=== PATIENT | female | born 1990 | race Caucasian/White ===

== ENCOUNTER → 2020-03-17 | Outpatient (CLI) | payer OTHER ==
--- NOTE | 2020-04-04 09:11 | REP ---
OBSTETRIC ULTRASOUND FOR ANATOMY Delay in reporting results from hospital computer malfunction as a result of [employer]. FINDINGS: There is a single intrauterine gestation. position is not recorded by the technologist, however, upon review of the images, the fetus appears to be in a cephalic presentation. The placenta is anterior, grade 1, without previa and without abruptio. heart rate is 149 beats per minute. Amniotic fluid volume subjectively is normal. Cervix measures 3.2 cm in length. Composite gestational age by the study today is 21 weeks 0 days, estimated date of delivery (EDC) 07/28/2020. Estimated weight is 405 grams. This is the 70th percentile. The following anatomic structures are identified and are unremarkable: Cisterna magna, cavum septum pellucidum, thalami, spine, stomach, kidneys, four chamber heart, cardiac right and left ventricular outflow tracts, three-vessel cord, cord insertion including the placental and insertions, upper and lower extremities, and face and upper lip. No anomalies are identified. MTDD
== END ==
LOC: M WHC 07:16
PROVIDERS: ATTEND Specialist
DX: Z34.02 Encounter for supervision of normal first pregnancy, second trimester (principal); Z36.89 Encounter for other specified antenatal screening; Z3A.21 21 weeks gestation of pregnancy

== ENCOUNTER → 2020-05-09 | Outpatient (CLI) | payer OTHER ==
[2020-05-09 13:45] LABS: BASO % 0.3 % (0.0-1.0); EOS # 0.2 10^3/uL (0.0-0.5); EOS % 2.2 % (0.0-3.0); HEMATOCRIT 34.5 % (36.0-47.0); HEMOGLOBIN 10.9 g/dl (12.0-15.5); MEAN CORPUSCULAR HEMOGLOBIN 28.9 pg (27.0-33.0); MEAN CORPUSCULAR HGB CONC 31.6 g/dl (32.0-36.5); MEAN CORPUSCULAR VOLUME 91.5 fl (80.0-96.0); MONO # 0.4 10^3/uL (0.0-0.8); MONO % 5.6 % (0.0-5.0); NEUTROPHILS % 78.1 % (36.0-66.0); PLATELET COUNT, AUTOMATED 183 10^3/uL (150-450); RED BLOOD COUNT 3.77 10^6/uL (4.00-5.40); WHITE BLOOD COUNT 7.7 10^3/uL (4.0-10.0)
== END ==
LOC: M PLALAB 08:57
PROVIDERS: ATTEND Specialist
DX: Z34.82 Encounter for supervision of other normal pregnancy, second trimester (principal); Z36.89 Encounter for other specified antenatal screening

== ENCOUNTER → 2020-06-20 | Outpatient (CLI) | payer OTHER ==
--- NOTE | 2020-06-20 16:33 | REP ---
INDICATION: O26.849 UTERINE SIZE DATE DISCREPANCY,GROWTH. COMPARISON: March 17, 2020.. TECHNIQUE: Transabdominal obstetric sonography. FINDINGS: Scanning through the gravid uterus demonstrates a viable single intrauterine gestation in cephalic lie. motion is observed and heart rate is recorded at 165 beats per minute. A anterior placenta is seen, grade 3, without evidence of placenta previa. Amniotic fluid is subjectively normal. Closed cervical length is measured at 4.0 cm transabdominally. No extrauterine abnormality is observed. anatomic survey is not performed.. Biometry chart: BPD 8.7 cm, 35 weeks 1 day Head circumference 33.2 cm, 37 weeks 6 days Abdominal circumference 34.2 cm, 38 weeks 1 day Femur length 6.4 cm 33 weeks 1 day Humeral length 5.5 cm, 32 weeks 0 days HC AC ratio normal 0.97 Cephalic index normal 0.72 Estimated weight 2974 g, 6 lb 8 oz, greater than 90th percentile for 34 weeks 1 day SALUD normal 11.4 cm IMPRESSION: Viable single intrauterine gestation at 35 weeks 2 days by today's composite sonographic criteria. MONISHA by today's sonography July 23, 2020. No complication identified. Estimated weight greater than 90th percentile for 34 weeks 1 day. <Electronically signed by Venu Su > 06/20/20 [id number]
== END ==
LOC: M WHC 13:00
PROVIDERS: ATTEND Advanced Practice Midwife
DX: O26.843 Uterine size-date discrepancy, third trimester (principal); Z3A.35 35 weeks gestation of pregnancy

== ENCOUNTER → 2020-06-27 | Outpatient (REF) | payer OTHER | LOC: M SFHCWAGY 13:10 | PROVIDERS: ATTEND Advanced Practice Midwife | DX: Z34.83 Encounter for supervision of other normal pregnancy, third trimester (principal); Z3A.00 Weeks of gestation of pregnancy not specified ==

== ENCOUNTER → 2020-07-10 | Outpatient (CLI) | payer OTHER ==
[~2020-07-10] MED LIST: MAPA500T2 PO; PRENTAB9 PO; TUMSCHW16 PO
--- NOTE | 2020-07-11 07:20 | REP ---
INDICATION: UTERINE SIZE-DATE DISCREPANCY,GROWTH COMPARISON: 06/20/2020 TECHNIQUE: Transabdominal obstetrical ultrasound with color Doppler evaluation. FINDINGS: Examination demonstrates a single live intrauterine in cephalic presentation. motion is identified by technologist. Placenta is noted anterior and grade 3 without evidence for placenta previa or abruption. Amniotic fluid volume is normal. Cervix measures 3.3 cm in length and appears closed.. Gestational age by LMP 37 weeks 1 day with MONISHA 07/30/2020. Gestational age by current measurements 37 weeks 1 day with MONISHA 07/30/2020. FHR equals 161 beats per minute. BPD: 9.5 cm 38 weeks 4 days HC: 33.0 cm 37 weeks 4 days AC: 33.4 cm 37 weeks 2 days FL: 7.1 cm 36 weeks 2 days HL: 6.2 cm 36 weeks 0 days HC/AC: 0.99 Estimated weight 3155 grams (61stpercentile). Amniotic fluid index: 14.4 cm (7.5-24.4) IMPRESSION: Single live advanced gestation in cephalic presentation demonstrating appropriate estimated weight and growth. <Electronically signed by Jarrod Tinsley > 07/11/20 0716
== END ==
LOC: M WHC 13:18
PROVIDERS: ATTEND Obstetrics & Gynecology
DX: O26.843 Uterine size-date discrepancy, third trimester (principal); O13.3 Gestational [pregnancy-induced] hypertension without significant proteinuria, third trimester

== ENCOUNTER → 2020-07-10 | Outpatient (REF) | payer OTHER ==
[~2020-07-10] MED LIST changes: +IBUP80TA PO; +NIFE1TAB52 PO
[2020-07-10 17:58] LABS: HEMATOCRIT 38.4 % (36.0-47.0); HEMOGLOBIN 11.8 g/dl (12.0-15.5); MEAN CORPUSCULAR HGB CONC 30.7 g/dl (32.0-36.5); PLATELET COUNT, AUTOMATED 162 10^3/uL (150-450); RED BLOOD COUNT 4.22 10^6/uL (4.00-5.40); WHITE BLOOD COUNT 8.9 10^3/uL (4.0-10.0)
[2020-07-10 20:11] LABS: ALT/SGPT 12 U/L (12-78); BILIRUBIN,TOTAL 0.3 MG/DL (0.2-1.0); CREATININE FOR GFR 0.45 MG/DL (0.55-1.30); GLOMERULAR FILTRATION RATE > 60.0 (>60); LDH LACTATE DEHYDROGENASE 185 U/L (84-246); URIC ACID 3.4 MG/DL (2.6-6.0)
[2020-07-10 20:16] LABS: TOTAL PROTEIN,RANDOM URINE 16.7 MG/DL (0.0-12.0)
== END ==
LOC: M PLALAB 15:42
PROVIDERS: ATTEND Advanced Practice Midwife
DX: O13.3 Gestational [pregnancy-induced] hypertension without significant proteinuria, third trimester (principal)
CPT/HCPCS: 36415; 76815; 82247; 82565; 82570; 83615; 84156; 84450; 84460; 84550; 85027; G0463

== ENCOUNTER 2020-07-12 07:11 | Inpatient (IN) | payer OTHER ==
[2020-07-12] VITALS (14 sets, daily range): BP systolic 131–147; BP diastolic 66–96
[~2020-07-12] VITALS: Ht 157.5 cm; Wt 91.2 kg
[2020-07-12] MEDS ORDERED: TUMSCHW16 PO (07:39)
[2020-07-12] MEDS ORDERED: MAPA500T2 PO (07:39)
[2020-07-12] MEDS ORDERED: PRENTAB9 PO ×2 (07:39)
[2020-07-12 09:10] LABS: HEMOGLOBIN 11.2 g/dl (12.0-15.5); MEAN CORPUSCULAR HEMOGLOBIN 28.2 pg (27.0-33.0); MEAN CORPUSCULAR VOLUME 88.2 fl (80.0-96.0); PLATELET COUNT, AUTOMATED 142 10^3/uL (150-450); RED BLOOD COUNT 3.97 10^6/uL (4.00-5.40); WHITE BLOOD COUNT 6.7 10^3/uL (4.0-10.0)
[2020-07-12 09:12] LABS: ALT/SGPT 12 U/L (12-78); BILIRUBIN,TOTAL 0.2 MG/DL (0.2-1.0); CREATININE FOR GFR 0.54 MG/DL (0.55-1.30); GLOMERULAR FILTRATION RATE > 60.0 (>60); LDH LACTATE DEHYDROGENASE 228 U/L (84-246); URIC ACID 4.1 MG/DL (2.6-6.0)
[2020-07-12] MEDS ORDERED: PENICILLIN G POTASSIUM IV 5 MU in D5W MINI-BAG PLUS 100 ML IV STA (09:32)
--- NOTE | 2020-07-12 09:39 | HPEPDOC ---
Obstetrical History & Physical General Date of Admission Jul 12, 2020 at 07:11 History of Present Illness 30-year-old at 37+2 weeks gestation. EDC 07/31/2020; dating by LMP consistent with first trimester ultrasound. Presents for an induction of labor. Indication for induction: Gestational hypertension/preeclampsia without severe features She denies vaginal bleeding, loss of fluid or painful, frequent uterine contractions. She reports regular movement. She denies headache, visual changes, right upper quadrant pain, shortness of breath or chest pain. course:. 1. Gestational hypertension versus preeclampsia without severe features 2. History of migraines with aura PMH:. Migraines SH:. LEEP (2013) Meds: vitamin, Claritin, iron, Pepcid, Esgic All: Lortab (nausea, vomiting) FINANCIAL SERVICES AGENT: No STI or dysplasia OB: 01/2014, 38+4 week , 7 lbs. 8 oz., uncomplicated Sochx: No tobacco, alcohol or drug use FamHx: Father emphysema, mother hypertension labs: Blood type B+, antibody screen negative, HepBsAg neg, HIV neg, rubella immune, Hep C antibody negative, RPR nonreactive, CT/GC neg, urine culture negative, 1 hour glucose challenge test 126, GBS positive Imaging: Second trimester ultrasound revealed no anomalies or placental abnormalities Past Medical History Allergies Coded Allergies: No Known Allergies (Unverified , 07/12/20) Medications Scheduled No.137/Iron/Folic Acd ( Vitamin Tablet) 1 Each Tablet, 1 TAB PO DAILY Scheduled PRN Acetaminophen (Mapap) 500 Mg Tablet, 1,000 MG PO Q6HP PRN for PAIN OR FEVER Calcium Carbonate (Tums Smoothies) 300 Mg Tab.chew, 750 MG PO Q4H PRN for INDIGESTION Physical Examination Physical Examination GENERAL: Alert and oriented times three. BREAST: . ABDOMEN: Gravid and non-tender to touch. FETUS: Is vertex (VTX) by sterile vaginal examination (SVE), fetus is vertex (VTX) by Wilber. HEART RATE: Regular rate and rhythm. LUNGS: Clear to auscultation (CTA). EXTREMITIES: No edema. No clonus. Deep tendon reflexes (DTRs) + 2. SVE: 1 cm, 50%, -3, cephalic, intact EFM: Category 1 [place]: Irregular contractions, patient reports being comfortable Vital Signs/I&O Vital Signs Date Time Temp Pulse Resp B/P (MAP) Pulse Ox O2 Delivery O2 Flow Rate FiO2 07/12/20 07:33 98.5 118 16 137/86 (103) Laboratory Data 24H LABS Vital Signs Date Time Temp Pulse Resp B/P (MAP) Pulse Ox O2 Delivery O2 Flow Rate FiO2 07/12/20 16:33 98.3 88 18 147/96 (113) 07/12/20 15:35 85 131/74 (93) 07/12/20 13:31 90 145/83 (103) 07/12/20 12:03 98.6 88 16 131/66 (87) 07/12/20 09:44 88 131/77 (95) 07/12/20 08:48 101 131/68 (89) 07/12/20 08:34 100 133/69 (90) 07/12/20 08:18 107 131/76 (94) 07/12/20 08:03 106 135/79 (97) 07/12/20 07:52 100 141/81 (101) 07/12/20 07:33 98.5 118 16 137/86 (103) Laboratory Tests 07/12/20 08:22: Urine Random Total Protein 48.8H 07/12/20 08:30: Creatinine 0.54L, Glomerular Filtration Rate > 60.0, Uric Acid 4.1, Total Bilirubin 0.2, Aspartate Amino Transf (AST/SGOT) 12, Alanine Aminotransferase (ALT/SGPT) 12, Lactate Dehydrogenase 228, Syphilis Serology [Pending] 07/12/20 08:37: White Blood Count 6.7, Red Blood Count 3.97L, Hemoglobin 11.2L, Hematocrit 35.0L, Mean Corpuscular Volume 88.2, Mean Corpuscular Hemoglobin 28.2, Mean Corpuscular Hemoglobin Concent 32.0, Red Cell Distribution Width 15.9H, Platelet Count 142L, Nucleated Red Blood Cells % (auto) 0.0, Urine Random Creatinine 107.0 07/12/20 09:25: Serology Scanned Report Hepatitis B Testing Current Medications Medications (Trade) Dose Ordered Sig/Kamilla Route PRN Reason Start Time Stop Time Status Last Admin Dose Admin Misoprostol (Cytotec) 50 mcg Q4H SL 07/12/20 10:00 07/12/20 14:24 50 MCG Penicillin G Potassium 2.5 mu/ IV Miscellaneous Supplies 25 ml @ 25 mls/hr Q4H IV 07/12/20 14:00 07/12/20 14:07 25 MLS/HR Laboratory Tests 2 07/12/20 08:22: Urine Random Total Protein 48.8H 07/12/20 08:30: Glomerular Filtration Rate > 60.0, Uric Acid 4.1, Total Bilirubin 0.2, Aspartate Amino Transf (AST/SGOT) 12, Alanine Aminotransferase (ALT/SGPT) 12, Lactate Dehydrogenase 228 07/12/20 08:37: Nucleated Red Blood Cells % (auto) 0.0, Urine Random Creatinine 107.0 CBC/BMP Vital Signs Date Time Temp Pulse Resp B/P (MAP) Pulse Ox O2 Delivery O2 Flow Rate FiO2 07/12/20 16:33 98.3 88 18 147/96 (113) 07/12/20 15:35 85 131/74 (93) 07/12/20 13:31 90 145/83 (103) 07/12/20 12:03 98.6 88 16 131/66 (87) 07/12/20 09:44 88 131/77 (95) 07/12/20 08:48 101 131/68 (89) 07/12/20 08:34 100 133/69 (90) 07/12/20 08:18 107 131/76 (94) 07/12/20 08:03 106 135/79 (97) 07/12/20 07:52 100 141/81 (101) 07/12/20 07:33 98.5 118 16 137/86 (103) Laboratory Tests 07/12/20 08:22: Urine Random Total Protein 48.8H 07/12/20 08:30: Creatinine 0.54L, Glomerular Filtration Rate > 60.0, Uric Acid 4.1, Total Bilirubin 0.2, Aspartate Amino Transf (AST/SGOT) 12, Alanine Aminotransferase (ALT/SGPT) 12, Lactate Dehydrogenase 228, Syphilis Serology [Pending] 07/12/20 08:37: White Blood Count 6.7, Red Blood Count 3.97L, Hemoglobin 11.2L, Hematocrit 35.0L, Mean Corpuscular Volume 88.2, Mean Corpuscular Hemoglobin 28.2, Mean Corpuscular Hemoglobin Concent 32.0, Red Cell Distribution Width 15.9H, Platelet Count 142L, Nucleated Red Blood Cells % (auto) 0.0, Urine Random Creatinine 107.0 07/12/20 09:25: Serology Scanned Report Hepatitis B Testing Current Medications Medications (Trade) Dose Ordered Sig/Kamilla Route PRN Reason Start Time Stop Time Status Last Admin Dose Admin Misoprostol (Cytotec) 50 mcg Q4H SL 07/12/20 10:00 07/12/20 14:24 50 MCG Penicillin G Potassium 2.5 mu/ IV Miscellaneous Supplies 25 ml @ 25 mls/hr Q4H IV 07/12/20 14:00 07/12/20 14:07 25 MLS/HR Laboratory Tests 07/12/20 08:30 Laboratory Tests 07/12/20 08:30 07/12/20 08:37 07/12/20 08:37 Assessment/Plan Assessment 30-year old at 37+2 weeks gestation. Dx:. Preeclampsia without severe features. Reassuring maternal and status. Plan Admit and orient. Routine labs/orders Group B Streptococcus (GBS) positive.. GBS prophylaxis with penicillin Start with cervical ripening via misoprostol 50mcg SL every 4-6 hours until cervix is favorable. Counseled on Pitocin and induction of labor (IOL). Mode of delivery plan: ; as indicated. KIKE PRITCHETT DO Jul 12, 2020 09:39
[2020-07-12] MEDS: miSOPROStol 50 MCG 1/2 TAB (S0191) SL SCH ×3 (10:03→22:06)
[2020-07-12] MEDS: PENICILLIN G POTASSIUM IV 2.5 MU in IV 1 EA IV SCH ×3 (14:07→22:07)
[2020-07-13] VITALS (38 sets, daily range): BP systolic 105–186; BP diastolic 56–123
[2020-07-13] MEDS: PENICILLIN G POTASSIUM IV 2.5 MU in IV 1 EA IV SCH ×3 (02:30→10:15)
--- NOTE | 2020-07-13 03:12 | IPNPDOC ---
Obstetrical Progress Note Date of Service Jul 13, 2020 Subjective Patient starting to feel uncomfortable with contractions. No loss of fluid or vaginal bleeding. No headache, visual changes, right upper quadrant pain, shortness of breath or chest pain. No subjective fever, chills, myalgias. Objective Vital Signs Date Time Temp Pulse Resp B/P (MAP) Pulse Ox O2 Delivery O2 Flow Rate FiO2 07/13/20 02:50 71 18 136/93 (107) 07/13/20 01:47 98.0 Mild Hypertension Normal heart rate. Afebrile SVE: 3 cm, 75%, -3 station, cephalic, intact, no bloody show EFM: Category 1 heart rate tracing [place]: contractions every 2-5 minutes Assessment and Plan Additional Comments A/P: Latent labor normal progression approaching active phase of labor. Favorable cervix. Reassuring maternal and status. -Start Pitocin, low-dose protocol DO SAL Ortiz JONATHAN R. DO Jul 13, 2020 03:11
[2020-07-13] MEDS ORDERED: OXYTOCIN DRIP 30 UNITS in IV 1 EA IV SCH ×2 (03:15→12:28)
[2020-07-13] MEDS ORDERED: FENTANYL 2MCG/ML ROPIVACAINE 0.2% IN 0.9% NACL 100ML IVBAG As Ordered ONE (03:27)
[2020-07-13] MEDS ORDERED: ONDANSETRON 4MG/2ML VIAL IV PRN ×2 (04:45→12:30)
[2020-07-13] MEDS ORDERED: NALOXONE INJ 0.4MG/1ML VIAL (J2310 PER 1MG) IV PRN (04:45)
[2020-07-13] MEDS ORDERED: REFRIGERATOR IV KEYS XX PRN (04:45)
[2020-07-13] MEDS ORDERED: EPIDURAL COMMENT XX SCH (04:45)
[2020-07-13] MEDS ORDERED: LACTATED RINGER'S 1000 ML IV PRN (04:45)
[2020-07-13] MEDS ORDERED: EPIDURAL/PCA KEYS XX PRN (04:45)
[2020-07-13] MEDS ORDERED: ePHEDrine SULFATE 25 MG/5 ML(5MG/ML) SYRINGE IV PRN (04:45)
[2020-07-13] MEDS ORDERED: diphenhydrAMINE 50MG/ML VIAL (J1200) IV PRN (04:45)
[2020-07-13] MEDS: FENTANYL/ROPIVACAINE/NACL BAG 100 ML EPIDURAL SCH ×2 (04:46→11:17)
[2020-07-13] MEDS ORDERED: CALCIUM CARBONATE 500 MG CHEW U/D PO SCH (09:00)
--- NOTE | 2020-07-13 09:52 | IPNPDOC ---
Obstetrical Progress Note Date of Service Jul 13, 2020 Subjective Patient is comfortable with epidural. Denies VB/LOF. No ALY, visual changes, RUQ pain, sob, cp. Objective Vital Signs Date Time Temp Pulse Resp B/P (MAP) Pulse Ox O2 Delivery O2 Flow Rate FiO2 07/13/20 07:52 78 16 109/56 (73) 07/13/20 06:21 99.0 Assessment Heart Rate Tracing: Category I Tocometer Contractions: Yes Frequency: every 2-5 min. Sterile Vaginal Examination Dilation: 4 cm Effacement (%): 70% Station: -2 Cervical Consistency: Soft Cervical Position: Anterior (AROM, clear fluid) Postion/Presentation: Cephalic presentation Assessment and Plan Status: Reassuring Additional Comments Reassuring maternal and status Continue KIKE Neal DO Jul 13, 2020 09:52
[2020-07-13] MEDS: LR 1,000 ML IV SCH ×6 (10:15→18:52)
[2020-07-13] MEDS ORDERED: DOCUSATE SODIUM 100MG CAPSULE PO PRN (12:30)
[2020-07-13] MEDS ORDERED: RHOGAM 300 MCG (1500 IU) INJ (J2790) IM SCH (12:30)
[2020-07-13] MEDS ORDERED: PROMETHAZINE 25 MG TAB PO PRN (12:30)
[2020-07-13] MEDS ORDERED: BENZOCAINE 20% HEMORRHOIDAL OINTMENT 28GM TUBE TOP PRN (12:30)
[2020-07-13] MEDS ORDERED: IBUPROFEN 800 MG TAB PO PRN (12:30)
[2020-07-13] MEDS ORDERED: ACETAMINOPHEN 500 MG TAB PO PRN (12:30)
[2020-07-13] MEDS ORDERED: ACETAMINOPHEN TAB 650MG DOSE (2X325MG) PO PRN (12:30)
[2020-07-13] MEDS ORDERED: MEASLES,MUMPS,RUBELLA VACCINE INJ (MMR-II) (90707) SC SCH (12:30)
--- NOTE | 2020-07-13 12:36 | DNPDOC ---
[facility] Delivery Note Delivery Note DATE OF DELIVERY: 07/13/2020 TIME OF DELIVERY: 1208 Spontaneous vaginal delivery. WRIST CLOSER: Dr. Regino Gómez DO FACOG ANESTHESIA: Epidural. LACERATION: Second-degree ESTIMATED BLOOD LOSS: 200 mL. FINDINGS: 8 pound 6 ounce (3790 g) male , Score, 5 and 9. DELIVERY SUMMARY: The active phase and second stage of labor progressed in normal fashion, with an epidural in place. She received Pitocin augmentation throughout her labor course. The head delivered in the PEACE position, and restituted LOT. No nuchal cord was noted. The anterior shoulder delivered with gentle downward guidance and the remainder of the body delivered with ease. The baby was placed on the patient's chest. Delayed cord clamping occurred for approximately 1 minute. The cord was then doubly clamped and cut. IV Pitocin was bolused to actively manage the third stage of labor. The placenta delivered intact without any difficulty within 10 minutes of delivery. The uterine fundus was noted to be firm and 2 cm below the umbilicus. The cervix, vagina, vulva and perineum were inspected.. Second-degree laceration was noted and immediately repaired with 3-0 Vicryl in typical fashion. Excellent hemostasis was noted. Sponge, needle and instrument counts were correct per protocol. DO SAL Hamilton JONATHAN R. DO Jul 13, 2020 12:36
[2020-07-13] MEDS ORDERED: FLUCONAZOLE 50MG TABLET PO ONE (13:00)
[2020-07-13] MEDS: IBUPROFEN 600MG TAB PO PRN (22:19)
[2020-07-14 05:47] VITALS: BP 118/68
[2020-07-14] MEDS: IBUPROFEN 600MG TAB PO PRN (06:25)
[2020-07-14] MEDS ORDERED: PRENATAL VITAMINS CHEWABLE TABLET PO SCH (09:00)
[2020-07-14] MEDS: LR 1,000 ML IV SCH (09:12)
--- NOTE | 2020-07-14 10:11 | IPNPDOC ---
Progress Note Date of Service: Jul 14, 2020 Day#: 1 Progress Note SUBJECT: Status post . She has been ambulating, voiding spontaneously without issue and tolerating regular diet. Lochia decreasing/minimal. Patient is ambulating well. OBJECTIVE: VITAL SIGNS: Within normal limits, afebrile. Alert and oriented times three. Abdomen: Fundus firm at U-2. Soft, NTTP. ASSESSMENT: Status post uncomplicated spontaneous vaginal delivery. Vitals within normal limits, afebrile, hemodynamically stable with no evidence of infection. PLAN: Discharge to home today. Tylenol and Motrin for pain. Routine instructions/precautions reviewed. Routine PP visit in 6 weeks in clinic. VS, I&O, 24H, Fishbone Vital Signs/I&O Vital Signs Date Time Temp Pulse Resp B/P (MAP) Pulse Ox O2 Delivery O2 Flow Rate FiO2 07/14/20 05:47 97.8 86 18 118/68 (85) 07/13/20 18:00 96 Room Air I&O- Last 24 Hours up to 6 AM 07/14/20 06:00 Intake Total 3570.2 ml Output Total 1850 ml Balance 1720.2 ml KIKE PRITCHETT DO Jul 14, 2020 10:11
== END 2020-07-14 14:40 | disposition home or self-care (01) | DRG 807 ==
LOC: M LDI 07:11 → M OBS 07-13 15:30
PROVIDERS: ADMIT Obstetrics & Gynecology; ATTEND Obstetrics & Gynecology
PROC: 3E0P7GC Introduction of Other Therapeutic Substance into Female Reproductive, Via Natural or Artificial Opening (ICD-10-PCS; 2020-07-12)
PROC: 10E0XZZ Delivery of Products of Conception, External Approach (ICD-10-PCS; principal; 2020-07-13)
PROC: 0KQM0ZZ Repair Perineum Muscle, Open Approach (ICD-10-PCS; 2020-07-13)
PROC: 10907ZC Drainage of Amniotic Fluid, Therapeutic from Products of Conception, Via Natural or Artificial Opening (ICD-10-PCS; 2020-07-13)
DX: O14.04 Mild to moderate pre-eclampsia, complicating childbirth (principal); Z37.0 Single live birth; Z3A.37 37 weeks gestation of pregnancy; O99.824 Streptococcus B carrier state complicating childbirth; O70.1 Second degree perineal laceration during delivery

== ENCOUNTER 2020-07-18 23:45 | Inpatient (IN) | payer OTHER ==
[~2020-07-18] VITALS: Ht 157.5 cm; Wt 86.3 kg
[~2020-07-18 23:45] MED LIST changes: -IBUP80TA PO; -NIFE1TAB52 PO
[2020-07-19] VITALS (44 sets, daily range): BP systolic 121–178; BP diastolic 67–104
[2020-07-19 00:45] LABS: BASO # 0.1 10^3/uL (0.0-0.2); BASO % 0.8 % (0.0-1.0); EOS # 0.2 10^3/uL (0.0-0.5); EOS % 3.3 % (0.0-3.0); HEMATOCRIT 40.5 % (36.0-47.0); HEMOGLOBIN 12.7 g/dl (12.0-15.5); LYMPH # 1.3 10^3/uL (1.5-5.0); LYMPH % 20.2 % (24.0-44.0); MEAN CORPUSCULAR HEMOGLOBIN 27.7 pg (27.0-33.0); MEAN CORPUSCULAR HGB CONC 31.4 g/dl (32.0-36.5); MEAN CORPUSCULAR VOLUME 88.4 fl (80.0-96.0); MONO # 0.5 10^3/uL (0.0-0.8); NEUTROPHILS # 4.5 10^3/uL (1.5-8.5); NEUTROPHILS % 68.1 % (36.0-66.0); PLATELET COUNT, AUTOMATED 192 10^3/uL (150-450); RED BLOOD COUNT 4.58 10^6/uL (4.00-5.40); WHITE BLOOD COUNT 6.6 10^3/uL (4.0-10.0)
[2020-07-19 00:49] LABS: APPEARANCE, URINE CLEAR (CLEAR); BACTERIA, URINE AUTO NEGATIVE (NEGATIVE); BILIRUBIN, URINE AUTO NEGATIVE (NEGATIVE); BLOOD, URINE BLOOD 3+ (NEGATIVE); COLOR, URINE STRAW (YELLOW); GLUCOSE, URINE (UA) AUTO NEGATIVE (NEGATIVE); KETONE, URINE AUTO NEGATIVE (NEGATIVE); LEUKOCYTE ESTERASE, URINE AUTO 1+ (NEGATIVE); NITRITE, URINE AUTO NEGATIVE (NEGATIVE); PROTEIN, URINE AUTO NEGATIVE (NEGATIVE); RBC, URINE AUTO 2 /HPF (0-3); SPECIFIC GRAVITY URINE AUTO 1.004 (1.002-1.035); SQUAMOUS EPITHELIAL CELL UR AU 3 /HPF (0-6); UROBILINOGEN, URINE AUTO 0.2 mg/dL (0.0-2.0); WBC, URINE AUTO 3 /HPF (0-3)
[2020-07-19 01:06] LABS: ALBUMIN 2.9 GM/DL (3.2-5.2); ALT/SGPT 18 U/L (12-78); BILIRUBIN,DIRECT 0.1 MG/DL (0.0-0.2); BILIRUBIN,TOTAL 0.3 MG/DL (0.2-1.0); BLOOD UREA NITROGEN 9 MG/DL (7-18); CALCIUM LEVEL 8.4 MG/DL (8.5-10.1); CARBON DIOXIDE LEVEL 24 MEQ/L (21-32); CHLORIDE LEVEL 113 MEQ/L (98-107); CREATININE FOR GFR 0.53 MG/DL (0.55-1.30); GLOMERULAR FILTRATION RATE > 60.0 (>60); GLUCOSE, FASTING 88 MG/DL (70-100); MAGNESIUM LEVEL 2.1 MG/DL (1.8-2.4); POTASSIUM SERUM 3.4 MEQ/L (3.5-5.1); SODIUM LEVEL 143 MEQ/L (136-145); TOTAL PROTEIN 6.6 GM/DL (6.4-8.2)
[2020-07-19] MEDS ORDERED: MAG Sulf (L&D) 4 GM/100 ML 4 GM in IV 1 EA IV ONE (04:00)
[2020-07-19] MEDS ORDERED: LIDOCAINE 2% JELLY 6 ML SYRINGE TOP ONE (04:15)
[2020-07-19] MEDS ORDERED: LIDOCAINE 2% 5ML JELLY UROJET TOP ONE (04:30)
--- NOTE | 2020-07-19 04:38 | HPEPDOC ---
[facility] Medical History & Physical Date of Admission Jul 19, 2020 Date of Service: Jul 19, 2020 History and Physical CHIEF COMPLAINT: Headache and chest pain HISTORY OF PRESENT ILLNESS: Boris is a 30 y/o with a presenting C/O elevated BPs at home, a headache, and chest pain. She presented to the ER earlier this evening, where labs were done. She reports earlier this evening she had a headache and "felt like someone was sitting on my chest". She reports that the headache and the chest pain have resolved. Denies nausea, epigastric pain, visual disturbances. History significant for IOL at 37.2 for GHTN/Pr eeclampsia with on 07/13/20. PAST MEDICAL HISTORY: 1. Gestational Hypertension/Preeclampsia. 2. Migraines. PAST SURGICAL HISTORY: 1. LEEP. SOCIAL HISTORY: Marital status: , present. Resides in: House Children: 2 Tobacco use: Denies ETOH: Denies Illicit drug use: Denies Tattoos done unprofessionally: None IV drug use: Denies Other relevant social factors: None FAMILY HISTORY: Father: Emphysema Mother: Hypertension Children: Healthy ALLERGIES: Please see below. REVIEW OF SYSTEMS: CONSTITUTIONAL: Alert and oriented x3. Affect normal. HEENT: No congestion, visual changes. CARDIOVASCULAR: SOB present with exertion, no palpitations. RESPIRATORY: No difficulty breathing. No accessory muscle use. GASTROINTESTINAL: Passing flatus, normal bowel movements. Denies changes/difficulties. SKIN: No rashes, open wounds. MUSCULOSKELETAL: Normal gait, normal strength. NEUROLOGICAL: Denies headache, visual disturbences. PSYCHIATRIC: Denies depression/anxiety symptoms. ENDOCRINE: No dry skin, hirsutism, hot flashes. EXTREMITIES: Edema present, no calf tenderness. HOME MEDICATIONS: Please see below. PHYSICAL EXAMINATION: VITAL SIGNS: See below, BP 178/112 GENERAL APPEARANCE: Alert and oriented x3. HEENT: Normal on examination, no JVD. CARDIOVASCULAR: Rate and rhythm regular. No murmurs. LUNGS: CTA Bilaterally. No accessory muscle use, rate regular. ABDOMEN: Soft, nontender to palpation. MUSCULOSKELETAL: Normal gait and strength bilaterally appreciated. EXTREMITIES: +2 pitting edema bilaterally to the knees. Brisk reflexes, +3, negative clonus. NEUROLOGICAL: Grossly intact, no visual disturbances or headache currently. PSYCHIATRIC: Denies depression symptoms. LABORATORY DATA: See below. ASSESSMENT: Preeclampsia . PLAN per consult Dr Bogsg: 1. Magnesium Sulfate 4g loading dose, then 2g/hr. 2. LR at 75mL/hr. 3. Sultana Catheter 4. Intake and Output Hourly 5. Nursing care per magnesium policy. Vital Signs Vital Signs Date Time Temp Pulse Resp B/P (MAP) Pulse Ox O2 Delivery O2 Flow Rate FiO2 07/19/20 03:29 98.2 77 178/93 (121) 07/19/20 02:15 98 07/18/20 23:49 30 Room Air Laboratory Data Labs 24H Laboratory Tests 2 07/19/20 00:33: Immature Granulocyte % (Auto) 0.6, Neutrophils (%) (Auto) 68.1H, Lymphocytes (%) (Auto) 20.2L, Monocytes (%) (Auto) 7.0H, Eosinophils (%) (Auto) 3.3H, Basophils (%) (Auto) 0.8, Neutrophils # (Auto) 4.5, Lymphocytes # (Auto) 1.3L, Monocytes # (Auto) 0.5, Eosinophils # (Auto) 0.2, Basophils # (Auto) 0.1, Nucleated Red Blood Cells % (auto) 0.0, Urine Color STRAW, Urine Appearance CLEAR, Urine pH 8.0, Urine Specific [place] 1.004, Urine Protein NEGATIVE, Urine Glucose (Auto)(UA) NEGATIVE, Urine Ketones (Auto) NEGATIVE, Urine Blood 3+H, Urine Nitrite NEGATIVE, Urine Bilirubin NEGATIVE, Urine Urobilinogen 0.2, Urine Leukocyte Esterase (Auto) 1+H, Urine WBC (Auto) 3, Urine RBC (Auto) 2, Urine Hyaline Casts (Auto) 0, Urine Bacteria (Auto) NEGATIVE, Urine Squamous Epithelial Cells 3, Urine Sperm (Auto) , Anion Gap 6L, Glomerular Filtration Rate > 60.0, Uric Acid 6.0, Calcium Level 8.4L, Magnesium Level 2.1, Total Bilirubin 0.3, Direct Bilirubin 0.1, Aspartate Amino Transf (AST/SGOT) 16, Alanine Aminotransferase (ALT/SGPT) 18, Alkaline Phosphatase 169H, Total Protein 6.6, Albumin 2.9L, Albumin/Globulin Ratio 0.8L 07/19/20 02:43: Coronavirus (COVID-19)(PCR) NEGATIVE, Influenza Type A (RT-PCR) NEGATIVE, Influenza Type B (RT-PCR) NEGATIVE, Respiratory Syncytial Virus (PCR) NEGATIVE CBC/BMP Laboratory Tests 07/19/20 00:33 Microbiology Microbiology 07/19/20 Urine Culture, Received Pending Home Medications Scheduled No.137/Iron/Folic Acd ( Vitamin Tablet) 1 Each Tablet, 1 TAB PO DAILY Allergies Coded Allergies: No Known Allergies (Unverified , 07/12/20) A-FIB/CHADSVASC A-FIB History Current/History of A-Fib/PAF?: No Dawna Connor CNM Jul 19, 2020 04:38
[2020-07-19] MEDS: LR 1,000 ML IV SCH ×2 (04:47→17:20)
[2020-07-19] MEDS: MAG Sulf (OBGYN) 20GM/500ML 20,000 MG in IV 1 EA IV SCH ×3 (05:24→23:55)
[2020-07-19 07:29] LABS: HEMATOCRIT 40.9 % (36.0-47.0); MEAN CORPUSCULAR HEMOGLOBIN 28.3 pg (27.0-33.0); MEAN CORPUSCULAR HGB CONC 31.8 g/dl (32.0-36.5); MEAN CORPUSCULAR VOLUME 88.9 fl (80.0-96.0); PLATELET COUNT, AUTOMATED 192 10^3/uL (150-450); WHITE BLOOD COUNT 6.6 10^3/uL (4.0-10.0)
[2020-07-19 07:54] LABS: ALT/SGPT 16 U/L (12-78); BILIRUBIN,TOTAL 0.3 MG/DL (0.2-1.0); CREATININE FOR GFR 0.53 MG/DL (0.55-1.30); GLOMERULAR FILTRATION RATE > 60.0 (>60); LDH LACTATE DEHYDROGENASE 267 U/L (84-246); URIC ACID 6.3 MG/DL (2.6-6.0)
--- NOTE | 2020-07-19 10:05 | ECGEPIP ---
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
[2020-07-19] MEDS: IBUPROFEN 800 MG TAB PO PRN ×2 (11:13→19:23)
[2020-07-19] MEDS: NIFEdipine 30 MG XL TAB PO SCH (11:13)
[2020-07-19] MEDS: ACETAMINOPHEN 500 MG TAB PO PRN (20:50)
[2020-07-20] VITALS (20 sets, daily range): BP systolic 129–158; BP diastolic 69–93
[2020-07-20] MEDS: IBUPROFEN 800 MG TAB PO PRN (03:36)
[2020-07-20] MEDS: ACETAMINOPHEN 500 MG TAB PO PRN (07:20)
[2020-07-20] MEDS: NIFEdipine 30 MG XL TAB PO SCH (08:48)
--- NOTE | 2020-07-20 10:09 | IPNPDOC ---
Progress Note Date of Service: Jul 20, 2020 Day#: 7 Progress Note Progress note, readmission for PP pre-eclampsia with severe range b p's SUBJECT: Boris is a 30yo s/p uncomplicated on 07/13 after undergoing IOL for GHTN/pre-eclampsia readmitted very early in the morning on 07/19 for initiation of IV MgSO4 for exacerbation of pre-eclampsia, doing well on HD 2/ day 7. She received IV MgSO4 from 0500 yesterday until 0500 this morning and I initiated her on 30mg XL Nifedipine yesterday morning. She has been normotensive to mild range with no further severe range bp's. She has no headache/vision changes/abdominal pain. She has leos catheter removed and has spontaneously voided once this morning so far with no issue, tolerating regular diet. Breast feeding without issue. Reports lochia is like a normal period. No f/c/n/v/CP/SOB. OBJECTIVE: VITAL SIGNS: normotensive to low mild range bp's, afebrile. Alert and oriented times three. Abdomen: Fundus firm at U-2. Soft, NTTP. Extremities: no pain with palpation of calves, 1+ pedal edema BLE ASSESSMENT: Boris is a 30yo s/p uncomplicated on 07/13 after unde rgoing IOL for GHTN/pre-eclampsia readmitted very early in the morning on 07/19 for initiation of IV MgSO4 for exacerbation of pre-eclampsia, doing well on HD 2/ day 7. She received IV MgSO4 from 0500 yesterday until 0500 this morning and I initiated her on 30mg XL Nifedipine yesterday morning. She has been normotensive to mild range with no further severe range bp's. She remains afebrile, hemodynamically stable with no evidence of infection. No s/sx of worsening pre-E. PLAN: 1. Discharge to home this afternoon if she remains normotensive to mild range in bp's with no development of sx of pre-E such as ALY/vision changes/abd pain 2. Tylenol and Motrin for pain. 3. Encourage breast feeding and ambulation. 5. Pt to present to clinic in 2 days for bp check and then routine PP visit in 6 weeks in clinic. 6. Discussed return precautions at length. Altagracia Boggs MD VS, I&O, 24H, Fishbone Vital Signs/I&O Vital Signs Date Time Temp Pulse Resp B/P (MAP) Pulse Ox O2 Delivery O2 Flow Rate FiO2 07/20/20 06:54 80 139/69 (92) 07/19/20 18:54 16 07/19/20 07:58 98.4 07/19/20 06:00 Room Air 07/19/20 02:15 98 I&O- Last 24 Hours up to 6 AM 07/20/20 06:00 Intake Total 5217 ml Output Total 7900 ml Balance -2683 ml Laboratory Data Microbiology Microbiology 07/19/20 Urine Culture - Final, Complete Altagracia Boggs MD Jul 20, 2020 10:09
[2020-07-20] MEDS ORDERED: IBUP80TA PO (10:11)
[2020-07-20] MEDS ORDERED: NIFE1TAB52 PO (10:11)
--- NOTE | 2020-07-20 10:16 | DS.PDOC ---
Discharge Summary General Date of Admission Jul 19, 2020 at 03:15 Date of Discharge Jul 20, 2020 Discharge Summary PROCEDURES PERFORMED DURING STAY: IV MgSO4 x24 hours ADMITTING DIAGNOSES: 1. exacerbation of pre-eclampsia DISCHARGE DIAGNOSES: 1. exacerbation of pre-eclampsia COMPLICATIONS/CHIEF COMPLAINT: Post Issue. HISTORY OF PRESENT ILLNESS/HOSPITAL COURSE: Boris is a 30yo s/p uncomplicated on 07/13 after undergoing IOL for GHTN/pre-eclampsia readmitted very early in the morning on 07/19 for initiation of IV MgSO4 for exacerbation of pre-eclampsia, doing well on HD 2/ day 7. She received IV MgSO4 from 0500 yesterday until 0500 this morning and I initiated her on 30mg XL Nifedipine yesterday morning. She has been normotensive to mild range with no further severe range bp's. She remains afebrile, hemodynamically stable with no evidence of infection. No s/sx of worsening pre-E. DISCHARGE MEDICATIONS: Please see below. ALLERGIES: Please see below. PHYSICAL EXAMINATION ON DISCHARGE: VITAL SIGNS: normotensive to low mild range bp's, afebrile. Alert and oriented times three. Abdomen: Fundus firm at U-2. Soft, NTTP. Extremities: no pain with palpation of calves, 1+ pedal edema BLE LABORATORY DATA: Please see below. ACTIVITY: As tolerated, vaginal rest 6 weeks PP DIET: regular DISPOSITION: home DISCHARGE PLAN/INSTRUCTIONS: 1. Discharge to home. Rx written for Nifedipine XL 30mg QD to continue taking for bp management 2. Tylenol and Motrin for pain. 3. Encourage breast feeding and ambulation. 5. Pt to present to clinic in 2 days for bp check and then routine PP visit in 6 weeks in clinic. 6. Discussed return precautions at length. DISCHARGE CONDITION: Stable TIME SPENT ON DISCHARGE: Greater than 20 minutes. Altagracia Boggs MD Vital Signs/I&Os Vital Signs Date Time Temp Pulse Resp B/P (MAP) Pulse Ox O2 Delivery O2 Flow Rate FiO2 07/20/20 06:54 80 139/69 (92) 07/19/20 18:54 16 07/19/20 07:58 98.4 07/19/20 06:00 Room Air 07/19/20 02:15 98 I&O- Last 24 Hours up to 6 AM 07/20/20 06:00 Intake Total 5217 ml Output Total 7900 ml Balance -2683 ml Microbiology Microbiology 07/19/20 Urine Culture - Final, Complete Discharge Medications Scheduled Nifedipine (Nifedipine ER) 30 Mg Tab.er.24, 30 MG PO DAILY No.137/Iron/Folic Acd ( Vitamin Tablet) 1 Each Tablet, 1 TAB PO DAILY, (Reported) Scheduled PRN Ibuprofen (Ibuprofen) 800 Mg Tablet, 800 MG PO Q8HP PRN for MODERATE PAIN (PS 5- 7) Allergies Coded Allergies: No Known Allergies (Unverified , 07/12/20) Altagracia Boggs MD Jul 20, 2020 10:16
== END 2020-07-20 15:05 | disposition home or self-care (01) | DRG 776 ==
LOC: M ED 23:45 → M LDI 07-19 03:15
PROVIDERS: ADMIT Advanced Practice Midwife; ATTEND Obstetrics & Gynecology
DX: O14.15 Severe pre-eclampsia, complicating the puerperium (principal)